=== PATIENT | female | born 1960 | race Two or more races ===

== ENCOUNTER → 2024-10-05 09:47 | Outpatient (CLI) | payer OTHER ==
[~2024-10-05 09:47] MED LIST: AMLODIPINE BESYL5 MG; ANTIVERT25 M2; VASOTEC20 MG
[2024-10-05 11:02] LABS: URINE APPEARANCE Clear; URINE BILIRRUBIN Negative (NEGATIVE); URINE BLOOD Negative; URINE COLOR Dark Yellow; URINE GLUCOSE Negative (NEGATIVE); URINE KETONE Trace (NEGATIVE); URINE LEUKOCYTE Moderate; URINE NITRATE Negative; URINE PROTEIN Trace (NEGATIVE)
[2024-10-05 11:03] LABS: URINE BACTERIA 216.6 uL (0.0-1933); URINE CAST 5.74 uL (0.0-1.40); URINE EPITHELIAL CELLS 27.8 uL (0.0-38.8); URINE RBC 3.5 uL (0.0-20.8); URINE WBC 46.5 uL (0.0-23.2)
[2024-10-05 11:03] LABS: HEMATOCRIT 42.9 % (36.0-45.00); HEMOGLOBIN 14.5 g/dL (12.0-15.00); MEAN CELL VOLUME 82.2 fL (80.00-100.00); MEAN CORPUSCULAR HEMOGLOBIN 27.7 pg (27.00-32.0); MEAN CORPUSCULAR HGB CONC 33.8 g/dl (32.0-36.0); PLATELET COUNT 294 K/uL (150-450); RED BLOOD COUNT 5.21 M/uL (4.00-6.00)
[2024-10-05 11:55] LABS: ALBUMIN 4.1 gm/dL (3.4-5.0); BILIRUBIN TOTAL 0.47 mg/dL (0.3-1.2); CALCIUM 10.2 mg/dL (8.5-10.1); CHOL HDL RATIO 5.9 (0-5.0); CREATININE SERUM 1.23 mg/dL (0.55-1.02); GFR 43.68; GLOBULINA 3.7 G/DL (2.4-3.5); POTASSIUM 4.81 mEq/L (3.5-5.1); TOTAL PROTEIN 7.8 gm/dL (6.4-8.2); TSH 2.08 uIU/mL (0.358-3.74)
[2024-10-05 12:27] LABS: VITAMIN D3 25 HYDROXY 30.44 ng/ml (30-120)
== END | disposition home or self-care (01) ==
LOC: LAB 09:47
PROVIDERS: ATTEND General Practice
DX: Z12.11 Encounter for screening for malignant neoplasm of colon (principal); E11.65 Type 2 diabetes mellitus with hyperglycemia; E03.9 Hypothyroidism, unspecified; E55.9 Vitamin D deficiency, unspecified; D53.1 Other megaloblastic anemias, not elsewhere classified; E78.1 Pure hyperglyceridemia

== ENCOUNTER 2024-10-07 09:33 | Outpatient (CLI) | payer OTHER ==
[2024-10-07 11:56] LABS: ob NEGATIVE (NEGATIVE)
== END 2024-10-07 09:36 | disposition home or self-care (01) ==
LOC: LAB 09:33
PROVIDERS: ATTEND General Practice
DX: Z12.11 Encounter for screening for malignant neoplasm of colon (principal); E11.65 Type 2 diabetes mellitus with hyperglycemia; E03.9 Hypothyroidism, unspecified; E78.1 Pure hyperglyceridemia; E55.9 Vitamin D deficiency, unspecified; D53.1 Other megaloblastic anemias, not elsewhere classified; N39.0 Urinary tract infection, site not specified